=== PATIENT | female | born 1975 ===

== ENCOUNTER 2023-06-04 21:16 | Emergency (ER) | payer MEDICAID ==
[~2023-06-04] VITALS: Ht 157.5 cm; Wt 61.0 kg
[2023-06-04 21:20] VITALS: BP 165/69; PULSE 91; RESP 18; O2SAT 100
[2023-06-04 22:49] VITALS: TEMP 98.4
[2023-06-04] MEDS: ACETAMINOPHEN 325MG TABLET PO ONE (22:49)
[2023-06-05] MEDS ORDERED: NAPR-1176 MT (02:06)
== END 2023-06-05 02:34 | disposition home or self-care (01) ==
LOC: ER 21:16
DX: S50.01XA Contusion of right elbow, initial encounter (principal); V89.2XXA Person injured in unspecified motor-vehicle accident, traffic, initial encounter; Y93.89 Activity, other specified; Y92.89 Other specified places as the place of occurrence of the external cause; Y99.8 Other external cause status
CPT/HCPCS: 73080; 73110; 73200; 99284; A4565